=== PATIENT | female | born 1960 | race Caucasian/White ===

== ENCOUNTER 2021-11-12 21:28 | Emergency (ER) | payer OTHER ==
[~2021-11-12] VITALS: Ht 162.6 cm; Wt 72.6 kg
[2021-11-12 21:37] VITALS: BP_SYST 153
--- NOTE | 2021-11-12 21:37 | NUR ---
Patient to ER bed 07 to gown for evaluation. Side rails up.
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
[2021-11-12] MEDS ORDERED: ACETAMINOPHEN/CODEINE 300 MG-30 MG TABLET PO ONE (22:45)
[2021-11-12] MEDS ORDERED: NALOXONE HCL 0.4 MG/ML AMP (NARCAN) IVP PRN (22:45)
[2021-11-12] MEDS ORDERED: DEXAMETHASONE SOD PHOSPHATE 10 MG/ML VIAL IM ONE (22:45)
[2021-11-13] MEDS ORDERED: NAPR-686 PO (00:11)
[2021-11-13] MEDS ORDERED: CYCL10TA24 PO (00:11)
[2021-11-13] MEDS ORDERED: ACET1TAB93 PO (00:11)
== END 2021-11-13 00:34 | disposition home or self-care (01) ==
LOC: SED 21:28
DX: S62.001A Unspecified fracture of navicular [scaphoid] bone of right wrist, initial encounter for closed fracture (principal); S13.4XXA Sprain of ligaments of cervical spine, initial encounter; V49.49XA Driver injured in collision with other motor vehicles in traffic accident, initial encounter; Y93.89 Activity, other specified; Y92.89 Other specified places as the place of occurrence of the external cause; Y99.8 Other external cause status
CPT/HCPCS: 72040; 73110; 73130; 96372; 99284; J1100; J2310